=== PATIENT | female | born 1955 | race Two or more races ===

== ENCOUNTER 2018-03-16 15:44 | Inpatient (IN) | payer OTHER ==
[~2018-03-16] VITALS: Ht 157.5 cm; Wt 104.7 kg
[2018-03-16] MEDS: D5%-0.45NACL+KCL 20MEQ 1,000 ML IV SCH (19:53)
[2018-03-16] MEDS ORDERED: SENNA/DOCUSATE TABLET PO PRN (20:00)
[2018-03-16] MEDS ORDERED: ONDANSETRON 4 MG TABLET PO PRN (20:00)
[2018-03-16] MEDS ORDERED: DIAZEPAM 5 MG TABLET PO PRN (20:00)
[2018-03-16] MEDS ORDERED: DIPHENHYDRAMINE 25 MG CAPSULE PO PRN (20:00)
[2018-03-16] MEDS ORDERED: ONDANSETRON 2MG/ML, 2ML IV PRN (20:00)
[2018-03-16] MEDS ORDERED: ALUMINUM/MAG/SIMETHICONE 30 ML UDC PO PRN (20:00)
[2018-03-16] MEDS ORDERED: HYDROmorphone 1 MG/ML, 1ML IV PRN (20:00)
[2018-03-16] MEDS ORDERED: ACETAMINOPHEN 650 MG/20.3 ML UDC PO PRN (20:00)
[2018-03-16] MEDS ORDERED: MAGNESIUM HYDROXIDE 8%, 30ML UDC PO PRN (20:00)
[2018-03-16 20:18] VITALS: BP 119/65
[2018-03-16] MEDS ORDERED: PLEASE ENTER WEIGHT MC SCH (20:30)
[2018-03-16] MEDS ORDERED: PLEASE ENTER ALLERGIES MC SCH (20:30)
[2018-03-16] MEDS: OXYcodone IR 5MG TABLET PO PRN (21:22)
[2018-03-16] MEDS: DOCUSATE 100 MG CAPSULE PO SCH (21:22)
[2018-03-16] MEDS: CEFAZOLIN PMX 1GM/50ML 50 ML IVPB SCH (21:49)
[2018-03-17 00:15] VITALS: BP 122/75
[2018-03-17] MEDS: OXYcodone IR 5MG TABLET PO PRN ×3 (01:53→13:39)
[2018-03-17] MEDS: D5%-0.45NACL+KCL 20MEQ 1,000 ML IV SCH ×2 (03:57→10:48)
[2018-03-17 04:23] VITALS: BP 117/76
[2018-03-17] MEDS ORDERED: DEXAMETHASONE 4 MG/ML, 1ML IVPush SCH (06:00)
[2018-03-17] MEDS ORDERED: ASPIRIN 81 MG TABLET EC PO SCH (06:00)
[2018-03-17] MEDS: CEFAZOLIN PMX 1GM/50ML 50 ML IVPB SCH (06:09)
[2018-03-17 07:33] VITALS: BP 113/72
[2018-03-17] MEDS: DOCUSATE 100 MG CAPSULE PO SCH (08:53)
[2018-03-17 13:42] VITALS: BP 111/74
[2018-03-17] MEDS ORDERED: PNEUMOCOCCAL 23 VACCINE IM-VACC ONE (15:00)
[2018-03-17 15:33] VITALS: BP 118/80
[2018-03-17] MEDS ORDERED: KETOROLAC 30 MG/1 ML IV SCH (20:00)
== END 2018-03-17 16:00 | disposition home or self-care (01) | DRG 554 ==
LOC: 4NOR 18:54 → INTOOBSV 18:54 → OBSVTOIN 03-17 10:45
PROVIDERS: ADMIT Orthopaedic Surgery; ATTEND Orthopaedic Surgery
DX: M16.11 Unilateral primary osteoarthritis, right hip (principal)
CPT/HCPCS: 36415; 85014; 85018; 90732; G0378; J0690; J1100